=== PATIENT | female | born 1980 | race Caucasian/White ===

== ENCOUNTER 2016-07-10 11:52 | Emergency (ER) | payer OTHER ==
[~2016-07-10 11:52] MED LIST: CIPR500T4 PO; PERC5TAB12 PO
[2016-07-10 11:59] VITALS: BP 134/78; PULSE 105; RESP 12; TEMP 98.4; O2SAT 99
[2016-07-10] MEDS ORDERED: ONDA1TAB16 PO (12:56)
[2016-07-10] MEDS ORDERED: OMEP20TA PO (12:56)
[2016-07-10] MEDS ORDERED: NECO1TAB2 PO (12:56)
--- NOTE | 2016-07-10 13:44 | PD ---
HPI Chief Complaint: Abdominal Pain Time Seen by Provider: 13:44 Travel History International Travel<30 days: No Contact w/Intl Traveler<30days: No Traveled to known affect area: No History of Present Illness HPI 36-year-old female presents to the emergency department for evaluation of epigastric abdominal pain for the past 6-7 weeks. Patient states that it is a crampy burning pain in her epigastrium that is constant. States it is aggravated with eating. Denies any alleviating factors. States that she occasionally has nausea and vomiting with this pain but not daily. States she did have two episodes of blood-tinged emesis this morning. She states she has been seen by her PCP multiple times over the past several weeks and had lab work and a gallbladder ultrasound that were unremarkable. States she has been prescribed Zofran and omeprazole, has not taken the Zofran this morning. States she has been referred to a siderographist and has an appointment in 10 days. Denies any fever, chills, chest pain, shortness of breath, diarrhea, constipation, bloody stool, black stool, dysuria, burning with urination, vaginal discharge. Denies , states her LMP was 1 week ago. Denies any prior abdominal surgeries. States she drinks alcohol occasionally. No other complaints. PFSH Past Medical History Medical History: Denies Significant Hx Immunizations Current: Yes Influenza Vaccination: No ?: Not Past Surgical History Tonsillectomy: Yes Other Surgery: Yes (lasor sx to forehead) Social History Alcohol Use: Yes (couple times per week) Tobacco Use: Yes (1/2 ppd) Substance Use: No Allergies-Medications (Allergen,Severity, Reaction): Coded Allergies: Adhesives (Unverified Allergy, Severe, HIVES, 07/10/16) Reported Meds & Prescriptions Reported Meds & Active Scripts Active Reglan (Metoclopramide HCl) 10 Mg Tab 10 Mg PO TIDAC PRN 5 Days Ranitidine (Ranitidine HCl) 150 Mg Tab 150 Mg PO BID 14 Days Reported Necon 1/35 (Norethindrone-Ethinyl Estradiol) 1-35 Mg-Mcg Tab 1 Tab PO DAILY Omeprazole 20 Mg Tab 20 Mg PO DAILY Ondansetron (Ondansetron HCl) 4 Mg Tab 4 Mg PO TID PRN Review of Systems Except as stated in HPI: all other systems reviewed are Neg Physical Exam Narrative GENERAL: Well-nourished and well-developed pleasant female patient in no acute distress who is nontoxic appearing. SKIN: Warm and dry. HEAD: Normocephalic and atraumatic. EYES: No injection, drainage, or hyphema noted. PERRLA. EOMI. ENT: No nasal drainage noted. Oropharynx is clear. NECK: Supple and the trachea is midline. CARDIOVASCULAR: Regular rate and rhythm. RESPIRATORY: Breath sounds are equal bilaterally with no accessory muscle use, wheezing, rhonchi, or crackles. GASTROINTESTINAL: Mild epigastric tenderness to palpation. Negative Lugo sign. Negative McBurney's point. No rebound tenderness or guarding. Abdomen is soft and nondistended. MUSCULOSKELETAL: No obvious deformities, swelling, cyanosis, or ecchymosis is present throughout the upper and lower extremities. Patient has full range of motion without any signs of neurovascular compromise. NEUROLOGICAL: Awake, alert, and oriented. Normal speech and gait. Cranial nerves are grossly intact. Data Data Last Documented VS Vital Signs Date Time Temp Pulse Resp B/P Pulse Ox O2 Delivery O2 Flow Rate FiO2 07/10/16 11:59 98.4 105 12 134/78 99 Room Air Orders Complete Blood Count With Diff (07/10/16 13:43) Comprehensive Metabolic Panel (07/10/16 13:43) Lipase (07/10/16 13:43) Al-Mag Hy-Si 40-40-4 Mg/Ml Liq (Mag-Al P (07/10/16 13:45) Lidocaine 2% Viscous (Xylocaine 2% Visco (07/10/16 13:45) Ed Urine Pregnancytest Poc (07/10/16 13:43) Famotidine (Pepcid) (07/10/16 13:45) Labs Laboratory Tests Test 07/10/16 13:40 White Blood Count 11.1 TH/MM3 Red Blood Count 4.41 MIL/MM3 Hemoglobin 13.8 GM/DL Hematocrit 40.6 % Mean Corpuscular Volume 92.1 FL Mean Corpuscular Hemoglobin 31.2 PG Mean Corpuscular Hemoglobin 33.9 % Concent Red Cell Distribution Width 11.9 % Platelet Count 353 TH/MM3 Mean Platelet Volume 7.7 FL Neutrophils (%) (Auto) 70.5 % Lymphocytes (%) (Auto) 21.0 % Monocytes (%) (Auto) 5.5 % Eosinophils (%) (Auto) 2.0 % Basophils (%) (Auto) 1.0 % Neutrophils # (Auto) 7.8 TH/MM3 Lymphocytes # (Auto) 2.3 TH/MM3 Monocytes # (Auto) 0.6 TH/MM3 Eosinophils # (Auto) 0.2 TH/MM3 Basophils # (Auto) 0.1 TH/MM3 CBC Comment DIFF FINAL Differential Comment Sodium Level 139 MEQ/L Potassium Level 4.0 MEQ/L Chloride Level 108 MEQ/L Carbon Dioxide Level 25.0 MEQ/L Anion Gap 6 MEQ/L Blood Urea Nitrogen 7 MG/DL Creatinine 0.87 MG/DL Estimat Glomerular Filtration 74 ML/MIN Rate Random Glucose 83 MG/DL Calcium Level 8.8 MG/DL Total Bilirubin 0.5 MG/DL Aspartate Amino Transf 37 U/L (AST/SGOT) Alanine Aminotransferase 39 U/L (ALT/SGPT) Alkaline Phosphatase 57 U/L Total Protein 7.2 GM/DL Albumin 3.9 GM/DL Lipase 90 U/L MDM Medical Decision Making Medical Screen Exam Complete: Yes Emergency Medical Condition: Yes Differential Diagnosis Gastritis versus PUD versus hepatobiliary pathology versus other Narrative Course 36-year-old female presents to the emergency department for evaluation of epigastric pain with nausea and vomiting. Patient is afebrile, vital signs are stable. She has some mild epigastric tenderness but her abdominal examination is essentially benign. She appears well overall. The patient has had these symptoms for several weeks and has seen her PCP multiple times, she has had outpatient imaging of her gallbladder and lab work. Will check CBC, CMP and lipase today. Patient is ordered a GI cocktail and Pepcid. ED urine test negative. CBC shows minimally elevated white blood cell count of 11.1, otherwise unremarkable. CMP is unremarkable. Lipase is normal. Patient reassessed after receiving medications and reports improvement of symptoms. I suspect that the patient has gastritis. She has an appointment with a siderographist in 10 days. She is instructed to keep this appointment. We'll prescribe her Zantac and Reglan. She is stable for discharge. Patient verbalizes understanding and agreement with treatment plan. I discussed the case with my attending physician Dr. Rowe who is aware of the patients history, physical examination findings, and treatment plan. Diagnosis Primary Impression: Gastritis Qualified Code: K29.70 - Gastritis without bleeding, unspecified chronicity, unspecified gastritis type Referrals: [employer] Patient Instructions: Gastritis (ED), General Instructions Additional Instructions: Take medications as prescribed with food and a full glass of water. Follow-up with the siderographist as scheduled. Return to the ED for any acute worsening of symptoms. Med/Other Pt SpecificInfo: Prescription(s) given Scripts Metoclopramide (Reglan)10 Mg Tab10 Mg PO TIDAC PRN (NAUSEA OR VOMITING) 5 Days Ref 0 Prov:Evangelist Rowe MD 07/10/16 Ranitidine 150 Mg Csh571 Mg PO BID 14 Days Ref 0 Prov:Evangelist Rowe MD 07/10/16 Disposition: 01 DISCHARGE HOME Condition: Stable Kiik Perea Jul 10, 2016 13:44
[2016-07-10] MEDS ORDERED: FAMOTIDINE 20 MG TAB PO ONE (13:45)
[2016-07-10] MEDS ORDERED: ALUMINUM/MAGNESIUM/SIMETH 30 ML CUP PO ONE (13:45)
[2016-07-10] MEDS ORDERED: LIDOCAINE VISCOUS 2% SOLN 15 ML UDC PO ONE (13:45)
[2016-07-10 14:23] LABS: AUTOMATED NEUTROPHIL # 7.8 TH/MM3 (1.8-7.7); BASOPHIL # 0.1 TH/MM3 (0-0.2); EOSINOPHIL # 0.2 TH/MM3 (0-0.4); HEMATOCRIT 40.6 % (35.0-46.0); HEMO FLAGS DIFF FINAL; LYMPHOCYTE # 2.3 TH/MM3 (1.0-4.8); MEAN CELL VOLUME 92.1 FL (80.0-100.0); MEAN CORPUSCULAR HEMOGLOBIN 31.2 PG (27.0-34.0); MEAN CORPUSCULAR HGB CONC 33.9 % (32.0-36.0); MONO % 5.5 % (0.0-8.0); NEUT % 70.5 % (16.0-70.0); PLATELET COUNT 353 TH/MM3 (150-450); RED BLOOD COUNT 4.41 MIL/MM3 (4.00-5.30); RED CELL DISTRIBUTION WIDTH 11.9 % (11.6-17.2); WHITE BLOOD COUNT 11.1 TH/MM3 (4.0-11.0)
[2016-07-10 14:29] LABS: ALT (GPT) 39 U/L (10-53); ANION GAP 6 MEQ/L (5-15); AST (GOT) 37 U/L (15-37); BLOOD UREA NITROGEN 7 MG/DL (7-18); CHLORIDE 108 MEQ/L (98-107); GLOMERULAR FILTRATION RATE 74 ML/MIN (>89); SODIUM (NA) 139 MEQ/L (136-145)
[2016-07-10 14:31] LABS: ALKALINE PHOSPHATASE 57 U/L (45-117); TOTAL BILIRUBIN ADULT 0.5 MG/DL (0.2-1.0)
[2016-07-10] MEDS ORDERED: RANI150T PO (15:16)
[2016-07-10] MEDS ORDERED: REGL10TA5 PO (15:16)
== END 2016-07-10 16:15 | disposition home or self-care (01) ==
LOC: NEPB 11:52
DX: K29.70 Gastritis, unspecified, without bleeding (principal); F17.210 Nicotine dependence, cigarettes, uncomplicated
CPT/HCPCS: 80053; 83690; 84703; 85025; 99284